=== PATIENT | male | born 1985 ===

== ENCOUNTER 2016-07-16 08:58 | Emergency (ER) | payer BC ==
[2016-07-16 09:45] VITALS: BP 135/75
--- NOTE | 2016-07-16 09:59 | UC ---
Ear Complaint HPI - HPI Summary HPI Summary: ear pain for 1 day, cant hear out of the ear - History of Current Complaint Chief Complaint: UCEar Stated Complaint: EAR PAIN Time Seen by Provider: 07/16/16 09:48 Hx Obtained From: Patient Onset/Duration: Sudden Onset, Lasting Days - 1 Severity Initially: Severe Severity Currently: Severe Pain Intensity: 8 Pain Scale Used: 0-10 Numeric Associated Signs/Symptoms: Positive: Discharge, Hearing Loss, URI Symptoms - Allergies/Home Medications Allergies/Adverse Reactions: Allergies Allergy/AdvReac Type Severity Reaction Status Date / Time Erythromycin Allergy Unknown Verified 07/16/16 09:45 Reaction Details PMH/Surg Hx/FS Hx/Imm Hx Previously Healthy: Yes Endocrine History Of: Denies: Diabetes Cardiovascular History Of: Denies: Hypertension, Pacemaker/ICD Respiratory History Of: Denies: Asthma - Surgical History Surgical History: None - Family History Known Family History: Positive: Hypertension - Social History Alcohol Use: Rare Substance Use Type: None Smoking Status (MU): Never Smoked Tobacco Review of Systems Constitutional: Fatigue Skin: Negative Eyes: Negative ENT: Ear Ache Respiratory: Negative Cardiovascular: Negative Gastrointestinal: Negative Genitourinary: Negative Motor: Negative Neurovascular: Negative Musculoskeletal: Negative Neurological: Negative Psychological: Negative All Other Systems Reviewed And Are Negative: Yes Physical Exam Triage Information Reviewed: Yes Appearance: Well-Appearing, Pain Distress, Obese Vital Signs: Initial Vital Signs Temp 98.3 F 07/16/16 09:42 Pulse 79 07/16/16 09:42 Resp 14 07/16/16 09:42 BP 135/75 07/16/16 09:42 Pulse Ox 98 07/16/16 09:42 Vital Signs Reviewed: Yes Eye Exam: Normal Eyes: Positive: Conjunctiva Clear ENT: Positive: TM bulging, TM red, Other: - bloody sloughly drainage in the bottom of the left ear canal, TM is red and bulging Dental Exam: Normal Neck exam: Normal Neck: Positive: Supple, Nontender, No Lymphadenopathy Respiratory Exam: Normal Respiratory: Positive: Chest non-tender, Lungs clear, Normal breath sounds Cardiovascular Exam: Normal Cardiovascular: Positive: RRR, No Murmur, Pulses Normal Abdominal Exam: Normal Abdomen Description: Positive: Nontender, No Organomegaly, Soft Bowel Sounds: Positive: Present Musculoskeletal Exam: Normal Musculoskeletal: Positive: Strength Intact, ROM Intact, No Edema Neurological Exam: Normal Neurological: Positive: Alert, Muscle Tone Normal Psychological Exam: Normal Skin Exam: Normal Ear Complaint Course/Dx - Course Course Of Treatment: hx obtained, exam performed, medication prescribed and referred to ENT. - Differential Dx/Diagnosis Differential Diagnosis/HQI/PQRI: Cerumen Impaction, Otitis Externa, Otitis Media Provider Diagnoses: Otitis MEdia, left. otitis Externa LEft Discharge - Discharge Plan Condition: Stable Disposition: HOME Prescriptions: Amoxicillin/Clavulanate TAB* [Augmentin TAB 875*] 875 mg PO BID #20 tab Neomyc/Polym/HC 1% OTIC SUSP* [Cortisporin Otic Susp 1%*] 4 drop LEFT EAR QID # 1 btl Patient Education Materials: Otitis Media (ED), Otitis Externa (ED) Referrals: Uziel Irby MD [Primary Care Provider] - Additional Instructions: take the medications as prescribed. I recommend follow up with Dr Chen, [phone]. if hearing loss persists.
== END 2016-07-16 10:29 | disposition home or self-care (01) ==
LOC: UCCORT 08:58
DX: H66.92 Otitis media, unspecified, left ear (principal); H60.92 Unspecified otitis externa, left ear; E66.9 Obesity, unspecified; Z88.1 Allergy status to other antibiotic agents
CPT/HCPCS: 99202; G0463

== ENCOUNTER 2018-12-19 15:12 | Emergency (ER) | payer SELFPAY ==
[2018-12-19 15:30] VITALS: BP 120/75
--- NOTE | 2018-12-19 15:30 | UC ---
General HPI - HPI Summary HPI Summary: Patient is a 33 year old male , who present today with fever for past 3 days. 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 Associated headaches, initiallly had body aches. No skin rask Tmax yesterday at 104F. taking ibuprofen and tylenol, last dose of ibuprofen at 8:30 am and tylenol at 1 pm. Denies any visual disturbance, sore throat, cough, chest, pain, SOB, abdominal pain or urinary symptoms. Had some nausea but no vomiting . He is tolerating po well. - History of Current Complaint Stated Complaint: FEVER (X3 DAYS) LIGHT HEADED/NAUSEA Time Seen by Provider: 12/19/18 15:22 Hx Obtained From: Patient - Allergy/Home Medications Allergies/Adverse Reactions: Allergies Allergy/AdvReac Type Severity Reaction Status Date / Time erythromycin base Allergy Unknown Verified 12/19/18 15:31 Reaction Details Home Medications: Home Medications Acetaminophen [Tylenol Extra Strength] 2 tab PO ONCE 12/19/18 [History Confirmed 12/19/18] Ibuprofen TAB* [Advil TAB*] 600 mg PO ONCE 12/19/18 [History Confirmed 12/19/18] PMH/Surg Hx/FS Hx/Imm Hx - Additional Past Medical History Additional PMH: Past Medical History:HTN Past Surgical history: none Family history: non contributory Social history: Non smoker, occasional alcohol use , no substance abuse. timber robber work with [employer] Previously Healthy: Yes - Surgical History Surgical History: None - Family History Known Family History: Positive: Hypertension, Non-Contributory - Social History Alcohol Use: Rare Substance Use Type: None Smoking Status (MU): Never Smoked Tobacco Review of Systems All Other Systems Reviewed And Are Negative: Yes Constitutional: Positive: Fever, Chills, Fatigue Skin: Positive: Negative Eyes: Positive: Negative ENT: Positive: Negative Respiratory: Positive: Negative Cardiovascular: Positive: Negative Gastrointestinal: Positive: Nausea. Negative: Abdominal Pain, Vomiting, Diarrhea Genitourinary: Positive: Negative Motor: Positive: Negative Neurovascular: Positive: Negative Musculoskeletal: Positive: Negative Neurological: Positive: Negative Psychological: Positive: Negative Is Patient Immunocompromised?: No Physical Exam - Summary Physical Exam Summary: Vital Signs Reviewed: Yes A+Ox3, no distress Eyes: Conjunctiva Clear ENT: Hearing grossly normal . TM normal bilaterally. Mild tonsilar enlargement, pharyngeal erythema, some whitish exudates. No lymphadenopathy. neck: supple Respiratory: lungs clear to auscultation bilaterally . Cardiovascular: RRR, S1S2 normal , no murmur Abdomen: soft, non tender, BS+ Musculoskeletal Exam: GARCIA x 4 without difficulty Neurological: Positive: Alert, ambulatory without difficulty Psychological: Positive: Normal Response To Family Skin: Positive: no rash, no ecchymosis Triage Information Reviewed: Yes Vital Signs Reviewed: Yes Course/Dx - Course Course Of Treatment: During the visit today, we obtained rapid strep test which was negative. He was given 1 dose of zofran as he was having nausea and he felt better. Blood work- cbcd, CMP and monospot test done. Advised he will be informed of any abnormal test results. Suspect viral illness. Patient expressed understanding . - Diagnoses Provider Diagnosis: Viral syndrome Discharge - Sign-Out/Discharge Documenting (check all that apply): Patient Departure All imaging exams completed and their final reports reviewed: No Studies - Discharge Plan Condition: Stable Disposition: HOME Prescriptions: Ondansetron ODT TAB* [Zofran 4 MG Odt TAB*] 4 mg PO Q8H PRN 7 Days #21 tab.odt PRN Reason: Nausea Patient Education Materials: Viral Syndrome (ED) Referrals: Casey Ramirez MD [Primary Care Provider] - 2 Days Additional Instructions: Zofran as need for nausea. t has been prescribed to the pharmacy . maintain hydration ibuprofen or tylenol as needed for fever. Blood work done. You will be informed of any abnormal test results. Follow up with your primary care doctor in 2 - 3 days. Return to Urgent care / ER if symptoms get worse. - Billing Disposition and Condition Condition: STABLE Disposition: Home
[2018-12-19] MEDS ORDERED: Ondansetron ODT TAB* 4 MG PO ONE (15:53)
[2018-12-20 10:59] LABS: Hematocrit 45 % (42-52); Hemoglobin 15.3 g/dL (14.0-18.0); Mean Corpuscular HGB Conc 34 g/dL (31-36); Mean Corpuscular Hemoglobin 31 pg (27-31); Mean Corpuscular Volume 91 fL (80-94); Mean Platelet Volume 9.2 fL (7.4-10.4); Platelet Count 188 10^3/uL (150-450); Red Blood Count 4.99 10^6 /uL (4.18-5.48); Red Cell Distribution Width 13 % (10-15); White Blood Count 5.3 10^3/uL (3.5-10.8)
[2018-12-20 11:27] LABS: Albumin 4.4 g/dL (3.2-5.2); Albumin/Globulin Ratio 1.5 (1-3); BUN/Creatinine Ratio 9.9 (8-20); Calcium 9.2 mg/dL (8.6-10.3); EGFR African American 116.8 (>60); EGFR Non-African American 96.6 (>60); Potassium 4.1 mmol/L (3.5-5.0); Total Bilirubin 0.5 mg/dL (0.2-1.0); Total Protein 7.4 g/dL (6.4-8.9)
[2018-12-20 11:58] LABS: ABS Monocytes 0.5 10^3/ul (0-0.8); ABS Neutrophils 3.8 10^3/ul (1.5-7.7); Eosinophil % 0.5 %; Lymphocyte % 19.5 %; Nucleated Red Blood Cells % 0.4
[2018-12-21 12:27] LABS: EBV Capsid Ag IgG Ab Positive (Negative); EBV Capsid Ag IgM Ab Negative (Negative); Epstein-Barr Nuclear Antigen Positive (Negative)
== END 2018-12-19 16:28 | disposition home or self-care (01) ==
LOC: UCCORT 15:12
DX: B34.9 Viral infection, unspecified (principal); Z88.1 Allergy status to other antibiotic agents; I10 Essential (primary) hypertension
CPT/HCPCS: 36415; 80053; 85025; 86308; 86664; 86665; 87651; 99212; A9270-GY; G0463